=== PATIENT | male | born 1950 | race Caucasian/White ===

== ENCOUNTER → 2017-04-19 | Outpatient (CLI) | payer MEDICARE, OTHER ==
[~2017-04-19] MED LIST: ANTIVERT12.5 MG PO; BREO ELLIPTA 11 EACH INH; CLARITIN10 MG PO; COMBIVENT RESPIM4 GM INH; COSOPT 2%-0.5%10 ML EYEBOTH; DUONEB 3.0-0.5 M3 ML INH; FISH OIL1 GM PO; FLEXERIL10 MG PO; FLONASE16 GM NASBOTH; GLUCOPHAGE500 MG PO; HALFPRIN81 MG PO; INCRUSE ELLI62.5 MCG INH; LEXAPRO20 MG PO; LOPRESSOR25 MG PO; MOBIC15 MG PO; MUCINEX DM ER1 EAC1 PO; PREDNISONE5 MG PO; PRILOSEC20 MG PO; PRINIVIL10 MG PO; SINGULAIR10 MG PO; ZETIA10 MG PO
== END | disposition short-term general hospital (02) ==
LOC: INF/INJ 10:45 → CLPULM 10:45
DX: J44.9 Chronic obstructive pulmonary disease, unspecified (principal); J98.4 Other disorders of lung; E66.9 Obesity, unspecified; I25.10 Atherosclerotic heart disease of native coronary artery without angina pectoris; G47.33 Obstructive sleep apnea (adult) (pediatric); I10 Essential (primary) hypertension; H40.9 Unspecified glaucoma; K21.9 Gastro-esophageal reflux disease without esophagitis; D75.1 Secondary polycythemia; J30.9 Allergic rhinitis, unspecified; E11.9 Type 2 diabetes mellitus without complications; T81.30XD Disruption of wound, unspecified, subsequent encounter; Z95.1 Presence of aortocoronary bypass graft; Z87.891 Personal history of nicotine dependence
CPT/HCPCS: G0424